=== PATIENT | male | born 1960 | race American Indian/Alaskan Native ===

== ENCOUNTER 2019-02-28 06:51 | Observation (INO) | payer OTHER ==
[2019-02-28] MEDS ORDERED: NACL 0.9% 1000 ML 1,000 ML IV ONE ×2 (07:16→12:27)
[2019-02-28] MEDS ORDERED: ASPIRIN PO ONE (07:29)
--- NOTE | 2019-02-28 07:34 | Emergency Department Report ---
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 Patient presented to the ER stating that he is not feeling well and he has been having a blurry vision on the left eye since yesterday. Patient denied any chest pain, shortness of breath, palpitation, weakness, numbness or tingling sensation. Patient denied any headache, neck pain, abdominal pain or extremity pain. Patient found to have a blood pressure of 87/47 in the emergency room. Patient stated that he took his blood pressure medicine this morning. Severity scale (0 -10): 0 - Related Data Home Medications Medication Instructions Recorded Confirmed Last Taken Payton Allergy 1 tab PO DAILY 02/28/19 02/28/19 02/28/19 Clopidogrel Bisulfate [Plavix] 75 mg PO DAILY 02/28/19 02/28/19 02/28/19 Imdur ER mg PO DAILY 02/28/19 Unknown Lamictal 200 mg PO DAILY 02/28/19 02/28/19 02/28/19 Zantac 150 MG TAB 1 tab PO DAILY 02/28/19 02/28/19 02/28/19 Allergies Allergy/AdvReac Type Severity Reaction Status Date / Time ciprofloxacin [From Cipro] Allergy Hives Verified 02/28/19 06:58 Sulfa (Sulfonamide Allergy Swelling Verified 02/28/19 06:59 Antibiotics) ED Review of Systems ROS: Stated complaint: POSS HIGH BP LT EYE BLURRED VISION Other details as noted in HPI Comment: All other systems reviewed and negative Constitutional: denies: chills, fever Eyes: vision change Respiratory: denies: cough Cardiovascular: denies: chest pain, palpitations, dyspnea on exertion, orthopnea, edema, syncope, paroxysmal nocturnal dyspnea Gastrointestinal: denies: abdominal pain, nausea, vomiting, diarrhea, constipation, hematemesis, melena Musculoskeletal: denies: back pain Neurological: denies: headache, weakness, numbness, paresthesias, confusion, abnormal gait ED Past Medical Hx - Past Medical History Previous Medical History?: Yes Hx Hypertension: Yes Hx Heart Attack/AMI: Yes (CT x 2, LAD 50% blockage) 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 - Surgical History Past Surgical History?: Yes Additional Surgical History: Bilateral Inguinal Hernia - Social History Smoking Status: Never Smoker Substance Use Type: None - Medications Home Medications: Home Medications Medication Instructions Recorded Confirmed Last Taken Type Payton Allergy 1 tab PO DAILY 02/28/19 02/28/19 02/28/19 History Clopidogrel Bisulfate [Plavix] 75 mg PO DAILY 02/28/19 02/28/19 02/28/19 History Imdur ER mg PO DAILY 02/28/19 Unknown History Lamictal 200 mg PO DAILY 02/28/19 02/28/19 02/28/19 History Zantac 150 MG TAB 1 tab PO DAILY 02/28/19 02/28/19 02/28/19 History ED Physical Exam - General Limitations: No Limitations General appearance: alert, in no apparent distress - Head Head exam: Present: atraumatic, normocephalic, normal inspection - Eye Eye exam: Present: normal appearance, PERRL - ENT ENT exam: Present: normal exam, normal orophraynx, mucous membranes moist - Neck Neck exam: Present: normal inspection, full ROM. Absent: tenderness, meningismus, lymphadenopathy, thyromegaly - Respiratory Respiratory exam: Present: normal lung sounds bilaterally - Cardiovascular Cardiovascular Exam: Present: regular rate, normal rhythm, normal heart sounds - GI/Abdominal GI/Abdominal exam: Present: soft, normal bowel sounds. Absent: distended, tenderness, guarding, rebound, rigid - Extremities Exam Extremities exam: Present: normal inspection, full ROM, normal capillary refill - Back Exam Back exam: Present: normal inspection, full ROM. Absent: tenderness, CVA tenderness (R), CVA tenderness (L), muscle spasm, paraspinal tenderness, vertebral tenderness - Neurological Exam Neurological exam: Present: alert, oriented X3, CN II-XII intact, normal gait, reflexes normal, other (NIHSS is 0) - Skin Skin exam: Present: warm, intact, normal color ED Course Vital Signs 02/28/19 02/28/19 02/28/19 07:03 07:39 08:06 Temperature 97.7 F Pulse Rate 72 61 Respiratory 18 17 16 Rate Blood Pressure 87/47 Blood Pressure 104/62 [Left] O2 Sat by Pulse 98 94 Oximetry 02/28/19 08:26 Temperature Pulse Rate 60 Respiratory 15 Rate Blood Pressure Blood Pressure 119/77 [Left] O2 Sat by Pulse 96 Oximetry ED Medical Decision Making - Lab Data Result diagrams: 02/28/19 07:35 02/28/19 07:35 - EKG Data -: EKG Interpreted by Me EKG shows normal: sinus rhythm Rate: bradycardia - EKG Data Interpretation: no acute changes - Radiology Data Radiology results: report reviewed Referring Physician: VALENTÍN TINOCO Patient Name: TREASURE BURGOS Date of : 1960 Sex: Male Report Date: 2019-02-28 Report Status: Finalized Findings [facility] [address] [place] [address] Cat Scan Report Signed Patient: TREASURE BURGOS MR#: [id number] : 1960 Acct:[id number] Age/Sex: 58 / M ADM Date: 02/28/19 Loc: ED Attending Dr: Ordering Physician: VALENTÍN TINOCO Date of Service: 02/28/19 Procedure(s): CT angio chest Accession Number(s): [id number] cc: VALENTÍN TINOCO PROCEDURE: CT ANGIO CHEST TECHNIQUE: TECHNIQUE: Computerized tomographic angiography of the chest was performed after the IV injection of iodinated nonionic contrast including image processing. The image data was postprocessed using 2-dimensional multiplanar reformatted (MPR) and 3- dimensional (MIP and/or volume rendered) techniques. Automated exposure control, adjustment of mA and/or kV according to patient size, or iterative reconstruction dose optimization techniques were utilized. Coronal and sagittal reconstructed imaging provided. CT DOSE LENGTH PRODUCT: 1024.6 mGy-cm. HISTORY: syncope, elevated d-dimer COMPARISONS: None currently available. FINDINGS: No pneumothorax. No effusion. No consolidation. No endobronchial lesion. Bibasilar dependent subsegmental atelectasis. Main pulmonary artery is unremarkable. No pulmonary embolism. No aneurysm. No dissection. Major branch arteries are within normal limits. Mild atherosclerotic disease. Mild cardiomegaly. No pericardial effusion. Coronary artery disease. There is no axillary adenopathy. There is no hilar or mediastinal mass or adenopathy. Limited images of the thyroid gland are unremarkable. Limited images of the esophagus are unremarkable. Bones: No suspicious osseous lesions on this limited examination of the skeleton. Metastatic disease better evaluated with bone scan. Degenerative changes are present in the spine. IMPRESSION: * No acute findings. This document is electronically signed by Germán Larsen MD., February 28 2019 09:21:35 AM ET Transcribed By: TYM Dictated By: GERMÁN LARSEN MD Electronically Authenticated By: GERMÁN LARSEN MD Signed Date/Time: 02/28/19 0923 Referring Physician: VALENTÍN TINOCO Patient Name: TREASURE BURGOS Date of : 1960 Sex: Male Report Date: 2019-02-28 Report Status: [place] [address] Cat Scan Report Signed Patient: TREASURE BURGOS MR#: [id number] : 1960 Acct:[id number] Age/Sex: 58 / M ADM Date: 02/28/19 Loc: ED Attending Dr: Ordering Physician: VALENTÍN TINOCO Date of Service: 02/28/19 Procedure(s): CT head/brain wo con Accession Number(s): [id number] cc: VALENTÍN TINOCO EXAM: CT HEAD/BRAIN WO CON HISTORY: blurred vision TECHNIQUE: Spiral axial CT images are obtained through the brain without the administration of intravenous contrast. COMPARISON: None available. FINDINGS: There are parenchymal lucencies within the white matter tracks of the centrum semiovale, consistent with chronic sequela of atherosclerotic microvascular ischemic disease. Atherosclerosis of the distal vertebral arteries is seen. There is diffuse cerebral cortical atrophy. The centrum semiovale, basal ganglia, cerebellum, and brainstem are otherwise grossly unremarkable for a noncontrast CT scan. There is no acute intracranial hemorrhage, gross acute infarction, mass lesion, midline shift, or hydrocephalus seen. No extra-axial mass or abnormal fluid collection noted. The calvarium is intact. There is chronic right maxillary sinusitis marked by mucoperiosteal thickening. The partially imaged paranasal sinuses, middle ear cavities and mastoid air cells are otherwise clear. IMPRESSION: 1. Extensive chronic microvascular ischemic disease noted, but no discernible acute infarction seen. Note that small or subtle acute infarctions can be obscured in this radiologic setting. Clinical correlation is advised. Consider followup MRI with diffusion-weighted imaging to rule out occult acute infarction as clinically warranted. 2. Atherosclerosis of the distal vertebral arteries is seen. 3. No skull fracture, intracranial hemorrhage, mass lesion, midline shift, or hydrocephalus seen. 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 Patient presented to the ER stating that he is not feeling well and he has been having a blurry vision on the left eye since yesterday. Patient denied any chest pain, shortness of breath, palpitation, weakness, numbness or tingling sensation. Patient denied any headache, neck pa in, abdominal pain or extremity pain. Patient found to have a blood pressure of 87/47 in the emergency room. Patient stated that he took his blood pressure medicine this morning. Patient stated that he is feeling better. CT brain is negative for acute findings that patient might need further workup with an MRI. CTA of the chest is negative for PE or other pathology. I discussed the patient is Dr. Pina, he agreed to admit the patient to medical service for further management. Critical Care Time: Yes Critical care time in (mins) excluding proc time.: 30 Critical care attestation.: If time is entered above; I have spent that time in minutes in the direct care of this critically ill patient, excluding procedure time. ED Disposition Clinical Impression: Dizziness, Hypotension Disposition: OP ADMIT IP TO THIS HOSP Is pt being admited?: Yes Condition: Stable Referrals: PRIMARY CARE, [Primary Care Provider] - 3-5 Days
[2019-02-28 08:01] LABS: Basophils # (Auto) 0.1 K/mm3 (0.0-0.1); Basophils % (Auto) 0.8 % (0.0-1.8); Eosinophils # (Auto) 0.2 K/mm3 (0.0-0.4); Eosinophils % (Auto) 2.5 % (0.0-4.3); Hematocrit 42.3 % (35.5-45.6); Hemoglobin 14.4 gm/dl (11.8-15.2); Lymphocytes # (Auto) 1.3 K/mm3 (1.2-5.4); Lymphocytes % (Auto) 16.8 % (13.4-35.0); Mean Corpuscular HGB Conc 34 % (32-34); Mean Corpuscular Volume 86 fl (84-94); Monocytes # (Auto) 0.5 K/mm3 (0.0-0.8); Monocytes % (Auto) 6.7 % (0.0-7.3); Platelet Count 240 K/mm3 (140-440); Red Blood Count 4.93 M/mm3 (3.65-5.03); Red Cell Distribution Width 14.3 % (13.2-15.2)
[2019-02-28 08:06] LABS: Calcium 8.9 mg/dL (8.4-10.2)
[2019-02-28 08:11] LABS: INR 0.98 (0.87-1.13)
[2019-02-28 08:12] LABS: Partial Thromboplastin Time 28.3 Sec. (24.2-36.6)
--- NOTE | 2019-02-28 08:24 | Cat Scan Report ---
EXAM: CT HEAD/BRAIN WO CON HISTORY: blurred vision TECHNIQUE: Spiral axial CT images are obtained through the brain without the administration of intra venous contrast. COMPARISON: None available. FINDINGS: There are parenchymal lucencies within the white matter tracks of the centrum semiovale, consistent w ith chronic sequela of atherosclerotic microvascular ischemic disease. Atherosclerosis of the distal vertebral arteries is seen. There is diffuse cerebral cortical atrophy. The centrum semiovale, basal ganglia, cerebellum, and bra instem are otherwise grossly unremarkable for a noncontrast CT scan. There is no acute intracranial hemorrhage, gross acute infarction, mass lesion, midline shift, or hydrocephalus seen. No extra-axia l mass or abnormal fluid collection noted. The calvarium is intact. There is chronic right maxillary sinusitis marked by mucoperiosteal thickeni ng. The partially imaged paranasal sinuses, middle ear cavities and mastoid air cells are otherwise c lear. IMPRESSION: 1. Extensive chronic microvascular ischemic disease noted, but no discernible acute infarction seen. Note that small or subtle acute infarctions can be obscured in this radiologic setting. Clinical cor relation is advised. Consider followup MRI with diffusion-weighted imaging to rule out occult acute i nfarction as clinically warranted. 2. Atherosclerosis of the distal vertebral arteries is seen. 3. No skull fracture, intracranial hemorrhage, mass lesion, midline shift, or hydrocephalus seen. This document is electronically signed by Vinay Mathis MD., February 28 2019 08:21:47 AM ET
--- NOTE | 2019-02-28 08:47 | XRay Report ---
EXAM: XR CHEST ROUTINE 2V HISTORY: Chest Pain TECHNIQUE: PA and lateral chest x-ray dated 02/28/2019 at 7:49 AM. COMPARISON: None available. FINDINGS: The heart size and mediastinum are within normal limits. The lung bingham and costophrenic angles are clear. There is mild asymmetrical elevation or mamillation of the right hemidiaphragm (presumed annette omical variant). There is no acute parenchymal infiltrate, pleural effusion, or pneumothorax seen. T he visualized bony structures are within normal limits. IMPRESSION: 1. No evidence for acute cardiopulmonary disease seen. This document is electronically signed by Vinay Mathis MD., February 28 2019 08:45:23 AM ET
--- NOTE | 2019-02-28 09:23 | Cat Scan Report ---
PROCEDURE: CT ANGIO CHEST TECHNIQUE: TECHNIQUE: Computerized tomographic angiography of the chest was performed after the IV i njection of iodinated nonionic contrast including image processing. The image data was postprocessed using 2-dimensional multiplanar reformatted (MPR) and 3-dimensional (MIP and/or volume rendered) emmy hniques. Automated exposure control, adjustment of mA and/or kV according to patient size, or iterati ve reconstruction dose optimization techniques were utilized. Coronal and sagittal reconstructed imag ing provided. CT DOSE LENGTH PRODUCT: 1024.6 mGy-cm. HISTORY: syncope, elevated d-dimer COMPARISONS: None currently available. FINDINGS: No pneumothorax. No effusion. No consolidation. No endobronchial lesion. Bibasilar dependent subsegme ntal atelectasis. Main pulmonary artery is unremarkable. No pulmonary embolism. No aneurysm. No dissection. Major branch arteries are within normal limits. Mild atherosclerotic dise ase. Mild cardiomegaly. No pericardial effusion. Coronary artery disease. There is no axillary adenopathy. There is no hilar or mediastinal mass or adenopathy. Limited images of the thyroid gland are unremarkable. Limited images of the esophagus are unremarkable. Bones: No suspicious osseous lesions on this limited examination of the skeleton. Metastatic disease better evaluated with bone scan. Degenerative changes are present in the spine. IMPRESSION: * No acute findings. This document is electronically signed by Germán Rosales MD., February 28 2019 09:21:35 AM ET
[2019-02-28] MEDS ORDERED: NACL 0.9% 1000 ML 1,000 ML ONE (12:09)
[2019-02-28] MEDS ORDERED: DILAUDID IV PRN (15:08)
[2019-02-28] MEDS ORDERED: TYLENOL PO PRN (15:08)
[2019-02-28] MEDS ORDERED: SODIUM CHLORIDE FLUSH SYRINGE 10 ML IV PRN (15:08)
[2019-02-28] MEDS ORDERED: ZOFRAN IV PRN (15:08)
[2019-02-28] MEDS ORDERED: PERCOCET 5/325 PO PRN (15:08)
--- NOTE | 2019-02-28 19:54 | History and Physical Report ---
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 Patient denied any chest pain, shortness of breath, palpitation, weakness, numbness or tingling sensation. Patient denied any headache, neck pain, abdominal pain or extremity pain. Patient found to have a blood pressure of 87/47 in the emergency room. 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 Surgical History Past Surgical History?: Yes Additional Surgical History: Bilateral Inguinal Hernia Social History Smoking Status: Never Smoker Substance Use Type: None Family History HTN Medications Home Medications: Home Medications Medication Instructions Recorded Confirmed Last Taken Type Payton Allergy 1 tab PO DAILY 02/28/19 02/28/19 02/28/19 History Clopidogrel Bisulfate [Plavix] 75 mg PO DAILY 02/28/19 02/28/19 02/28/19 History Imdur ER mg PO DAILY 02/28/19 Unknown History Lamictal 200 mg PO DAILY 02/28/19 02/28/19 02/28/19 History Zantac 150 MG TAB 1 tab PO DAILY 02/28/19 02/28/19 02/28/19 History Review of Systems ROS: Stated complaint: POSS HIGH BP LT EYE BLURRED VISION Other details as noted in HPI Comment: All other systems reviewed and negative Constitutional: denies: chills, fever Eyes: vision change Respiratory: denies: cough Cardiovascular: denies: chest pain, palpitations, dyspnea on exertion, orthopnea, edema, syncope, paroxysmal nocturnal dyspnea Gastrointestinal: denies: abdominal pain, nausea, vomiting, diarrhea, constipation, hematemesis, melena Musculoskeletal: denies: back pain Neurological: denies: headache, weakness, numbness, paresthesias, confusion, abnormal gait Medications and Allergies Allergies Allergy/AdvReac Type Severity Reaction Status Date / Time ciprofloxacin [From Cipro] Allergy Hives Verified 02/28/19 06:58 Sulfa (Sulfonamide Allergy Swelling Verified 02/28/19 06:59 Antibiotics) Home Medications Medication Instructions Recorded Confirmed Last Taken Type Payton Allergy 1 tab PO DAILY 02/28/19 02/28/19 02/28/19 History Clopidogrel Bisulfate [Plavix] 75 mg PO DAILY 02/28/19 02/28/19 02/28/19 History Imdur ER mg PO DAILY 02/28/19 Unknown History Lamictal 200 mg PO DAILY 02/28/19 02/28/19 02/28/19 History Zantac 150 MG TAB 1 tab PO DAILY 02/28/19 02/28/19 02/28/19 History Active Meds: Active Medications Acetaminophen (Tylenol) 650 mg PO Q4H PRN PRN Reason: Pain MILD(1-3)/Fever >100.5/OVERTON Aspirin (Baby Aspirin) 81 mg PO QDAY LATISHA Famotidine (Pepcid) 20 mg IV BID LATISHA Hydromorphone HCl (Dilaudid) 0.5 mg IV Q3H PRN PRN Reason: Pain , Severe (7-10) Ondansetron HCl (Zofran) 4 mg IV Q8H PRN PRN Reason: Nausea And Vomiting Oxycodone/Acetaminophen (Percocet 5/325) 1 tab PO Q6H PRN PRN Reason: Pain, Moderate (4-6) Sodium Chloride (Sodium Chloride Flush Syringe 10 Ml) 10 ml IV BID LATISHA Sodium Chloride (Sodium Chloride Flush Syringe 10 Ml) 10 ml IV PRN PRN PRN Reason: LINE FLUSH Exam - Constitutional Vitals: Temp Pulse Resp BP Pulse Ox 97.6 F 59 L 18 141/88 95 02/28/19 17:46 02/28/19 17:46 02/28/19 17:46 02/28/19 17:46 02/28/19 17:46 General appearance: Present: no acute distress, well-nourished - EENT Eyes: Present: PERRL ENT: hearing intact, clear oral mucosa - Neck Neck: Present: supple, normal ROM - Respiratory Respiratory effort: normal Respiratory: bilateral: CTA - Cardiovascular Heart rate: 63 Rhythm: regular Heart Sounds: Present: S1 & S2. Absent: rub, click - Extremities Extremities: no ischemia, pulses intact, pulses symmetrical, No edema Peripheral Pulses: within normal limits - Abdominal General gastrointestinal: Present: soft, non-tender, non-distended, normal bowel sounds Male genitourinary: Present: normal - Rectal Rectal Exam: deferred - Integumentary Integumentary: Present: clear, warm, dry - Musculoskeletal Musculoskeletal: gait normal, strength equal bilaterally - Psychiatric Psychiatric: appropriate mood/affect, intact judgment & insight - Neurologic Neurologic: CNII-XII intact, moves all extremities - Allied Health Allied health notes reviewed: nursing, case management Results - Labs CBC & Chem 7: 03/01/19 05:24 03/01/19 05:24 Labs: Laboratory Last Values WBC 7.6 K/mm3 (4.5-11.0) 02/28/19 07:35 RBC 4.93 M/mm3 (3.65-5.03) 02/28/19 07:35 Hgb 14.4 gm/dl (11.8-15.2) 02/28/19 07:35 Hct 42.3 % (35.5-45.6) 02/28/19 07:35 MCV 86 fl (84-94) 02/28/19 07:35 MCH 29 pg (28-32) 02/28/19 07:35 MCHC 34 % (32-34) 02/28/19 07:35 RDW 14.3 % (13.2-15.2) 02/28/19 07:35 Plt Count 240 K/mm3 (140-440) 02/28/19 07:35 Lymph % (Auto) 16.8 % (13.4-35.0) 02/28/19 07:35 Morton % (Auto) 6.7 % (0.0-7.3) 02/28/19 07:35 Eos % (Auto) 2.5 % (0.0-4.3) 02/28/19 07:35 Baso % (Auto) 0.8 % (0.0-1.8) 02/28/19 07:35 Lymph # 1.3 K/mm3 (1.2-5.4) 02/28/19 07:35 Morton # 0.5 K/mm3 (0.0-0.8) 02/28/19 07:35 Eos # 0.2 K/mm3 (0.0-0.4) 02/28/19 07:35 Baso # 0.1 K/mm3 (0.0-0.1) 02/28/19 07:35 Seg Neutrophils % 73.2 % (40.0-70.0) H 02/28/19 07:35 Seg Neutrophils # 5.5 K/mm3 (1.8-7.7) 02/28/19 07:35 PT 13.6 Sec. (12.2-14.9) 02/28/19 07:35 INR 0.98 (0.87-1.13) 02/28/19 07:35 APTT 28.3 Sec. (24.2-36.6) 02/28/19 07:35 D-Dimer 388.83 ng/mlDDU (0-234) H 02/28/19 07:35 Sodium 140 mmol/L (137-145) 02/28/19 07:35 Potassium 4.3 mmol/L (3.6-5.0) 02/28/19 07:35 Chloride 108.4 mmol/L (98-107) H 02/28/19 07:35 Carbon Dioxide 22 mmol/L (22-30) 02/28/19 07:35 Anion Gap 14 mmol/L 02/28/19 07:35 BUN 23 mg/dL (9-20) H 02/28/19 07:35 Creatinine 1.4 mg/dL (0.8-1.5) 02/28/19 07:35 Estimated GFR 52 ml/min 02/28/19 07:35 BUN/Creatinine Ratio 16 % 02/28/19 07:35 Glucose 115 mg/dL (75-100) H 02/28/19 07:35 Hemoglobin A1c 5.5 % (4-6) 02/28/19 13:00 Lactic Acid 1.20 mmol/L (0.7-2.0) 02/28/19 07:35 Calcium 8.9 mg/dL (8.4-10.2) 02/28/19 07:35 Total Bilirubin 0.60 mg/dL (0.1-1.2) 02/28/19 07:35 AST 15 units/L (5-40) 02/28/19 07:35 ALT 13 units/L (7-56) 02/28/19 07:35 Alkaline Phosphatase 67 units/L (35-129) 02/28/19 07:35 Troponin T < 0.010 ng/mL (0.00-0.029) 02/28/19 13:30 Total Protein 6.4 g/dL (6.3-8.2) 02/28/19 07:35 Albumin 4.0 g/dL (3.9-5) 02/28/19 07:35 Albumin/Globulin Ratio 1.7 % 02/28/19 07:35 Short CBC 02/28/19 03/01/19 Range/Units 07:35 05:24 WBC 7.6 6.6 (4.5-11.0) K/mm3 Hgb 14.4 14.4 (11.8-15.2) gm/dl Hct 42.3 42.2 (35.5-45.6) % Plt Count 240 201 (140-440) K/mm3 BMP 02/28/19 03/01/19 07:35 05:24 Sodium 140 142 Potassium 4.3 4.0 Chloride 108.4 H 109.1 H Carbon Dioxide 22 22 BUN 23 H 12 Creatinine 1.4 1.1 Glucose 115 H 98 Calcium 8.9 8.7 Cardiac Enzymes 02/28/19 02/28/19 02/28/19 Range/Units 07:35 10:18 13:30 Troponin T < 0.010 < 0.010 < 0.010 (0.00-0.029) ng/mL Liver Function 02/28/19 03/01/19 Range/Units 07:35 05:24 Total Bilirubin 0.60 0.50 (0.1-1.2) mg/dL AST 15 18 (5-40) units/L ALT 13 15 (7-56) units/L Alkaline Phosphatase 67 64 (35-129) units/L Albumin 4.0 3.7 L (3.9-5) g/dL - Imaging and Cardiology EKG: report reviewed (NSR 63/min) Chest x-ray: report reviewed (NAF) Imaging and Cardiology: Head CT IMPRESSION: 1. Extensive chronic microvascular ischemic disease noted, but no discernible acute infarction seen. Note that small or subtle acute infarctions can be obscured in this radiologic setting. Clinical correlation is advised. Consider followup MRI with diffusion-weighted imaging to rule out occult acute infarction as clinically warranted. 2. Atherosclerosis of the distal vertebral arteries is seen. 3. No skull fracture, intracranial hemorrhage, mass lesion, midline shift, or hydrocephalus seen. CTA chest IMPRESSION: * No acute findings. This document is electronically signed by Germán Rosales MD., February 28 2019 09:21:35 AM ET Assessment and Plan Advance Directives: Yes (Full code) VTE prophylaxis?: Chemical Plan of care discussed with patient/family: Yes - Patient Problems (1) Hypotension Current Visit: Yes Status: Acute Qualifiers: Hypotension type: hypotension due to drug Qualified Code(s): I95.2 - Hypotension due to drugs Plan to address problem: Iatrogenic Patient takes all BP meds at the same time Was advised to space them out and suggested a time schedule (2) CAD (coronary artery disease) Current Visit: Yes Status: Chronic Plan to address problem: Cont Isosorbide and ASA (3) HTN (hypertension) Current Visit: Yes Status: Chronic Qualifiers: Hypertension type: essential hypertension Qualified Code(s): I10 - Essential (primary) hypertension Plan to address problem: Resume antihypertensives when stable Will cut the dose of Valsartan (4) DVT prophylaxis Current Visit: Yes Status: Acute Plan to address problem: On Lovenox
[2019-02-28] MEDS: PEPCID IV SCH (21:48)
[2019-02-28] MEDS: SODIUM CHLORIDE FLUSH SYRINGE 10 ML IV SCH (21:51)
[2019-03-01 06:06] LABS: Basophils % (Auto) 0.8 % (0.0-1.8); Eosinophils # (Auto) 0.2 K/mm3 (0.0-0.4); Eosinophils % (Auto) 3.4 % (0.0-4.3); Hematocrit 42.2 % (35.5-45.6); Hemoglobin 14.4 gm/dl (11.8-15.2); Lymphocytes # (Auto) 1.6 K/mm3 (1.2-5.4); Lymphocytes % (Auto) 23.7 % (13.4-35.0); Mean Corpuscular HGB Conc 34 % (32-34); Mean Corpuscular Volume 86 fl (84-94); Monocytes # (Auto) 0.4 K/mm3 (0.0-0.8); Monocytes % (Auto) 6.6 % (0.0-7.3); Platelet Count 201 K/mm3 (140-440); Red Blood Count 4.91 M/mm3 (3.65-5.03); Red Cell Distribution Width 14.1 % (13.2-15.2)
[2019-03-01 06:33] LABS: Alanine Aminotransferase 15 units/L (7-56); Albumin 3.7 g/dL (3.9-5); BUN/Creatinine Ratio 11; Blood Urea Nitrogen 12 mg/dL (9-20); Calcium 8.7 mg/dL (8.4-10.2); Hemolysis Index 7
[2019-03-01] MEDS: BABY ASPIRIN PO SCH (10:09)
[2019-03-01] MEDS: PEPCID IV SCH ×2 (10:09→21:50)
[2019-03-01] MEDS: SODIUM CHLORIDE FLUSH SYRINGE 10 ML IV SCH ×2 (10:09→21:50)
--- NOTE | 2019-03-01 11:24 | Discharge Summary ---
Providers - Providers Date of Admission: 02/28/19 11:44 Date of discharge: 03/01/19 Attending physician: NAOMI CALIX none Primary care physician: STRU[employer] SUPERVISOR Hospitalization Condition: Good Pertinent studies: CT scan head which showed extensive microvascular ischemic changes consistent with vascular disease. Hospital course: 58-year-old history of hypertension coronary disease presents with an acute episode of hypotension after taking all of blood pressure medications and ischemic medications at the same time. Medications were santiago symptoms of headache and blurred vision resolved immediately. Follow-up CT scan head unremarkable. Except for old microvascular ischemia. Aspirin course unremarkable abdominal and medications except for return of hypertension. Patient be discharged home in medications valsartan will be cut in half to 160 once daily and titrate accordingly. Continue Coreg 12.5 twice a day. Disposition: TO HOME OR SELFCARE - Discharge Diagnoses (1) Dizziness Status: Acute (2) Hypotension Status: Acute Qualifiers: Hypotension type: hypotension due to drug Qualified Code(s): I95.2 - Hypotension due to drugs Comment: diovan 160 daily and f?u with automobile technician for titration (3) CAD (coronary artery disease) Status: Chronic Comment: cont IMdur (4) HTN (hypertension) Status: Chronic Qualifiers: Hypertension type: essential hypertension Qualified Code(s): I10 - Essential (primary) hypertension Comment: take coreg 12.5 bid and diovan 160 in am as well.. long acting NTG can be taken i the evening with the Coreg Core Measure Documentation - Palliative Care Palliative Care/ Comfort Measures: Not Applicable - Core Measures Any of the following diagnoses?: none Exam - Constitutional Vitals: Temp Pulse Resp BP Pulse Ox 98.4 F 59 L 20 187/107 95 03/01/19 08:17 03/01/19 08:17 03/01/19 08:17 03/01/19 08:17 03/01/19 08:17 General appearance: Present: no acute distress, well-nourished - EENT Eyes: Present: PERRL ENT: hearing intact, clear oral mucosa - Neck Neck: Present: supple, normal ROM - Respiratory Respiratory effort: normal Respiratory: bilateral: CTA - Cardiovascular Heart Sounds: Present: S1 & S2. Absent: rub, click - Extremities Extremities: pulses symmetrical, No edema Peripheral Pulses: within normal limits - Abdominal General gastrointestinal: Present: soft, non-tender, non-distended, normal bowel sounds Male genitourinary: Present: normal - Integumentary Integumentary: Present: clear, warm, dry - Musculoskeletal Musculoskeletal: gait normal, strength equal bilaterally - Psychiatric Psychiatric: appropriate mood/affect, intact judgment & insight - Neurologic Neurologic: CNII-XII intact, moves all extremities Plan Activity: no restrictions Weight Bearing Status: Weight Bear as Tolerated Diet: low salt Special Instructions: record daily BP diary Follow up with: PRIMARY CARE, [Primary Care Provider] - 3-5 Days Prescriptions: Carvedilol [Coreg] 12.5 mg PO BID #60 tablet Valsartan [Diovan] 160 mg PO DAILY #30 tablet
[2019-03-01] MEDS ORDERED: APRESOLINE IV ONE (12:00)
[2019-03-01] MEDS: COREG PO SCH ×2 (14:18→21:50)
[2019-03-01] MEDS: DIOVAN PO SCH (14:24)
--- NOTE | 2019-03-01 17:46 | Event Note ---
Date: 03/01/19 Discharge he'll because patient began to have left-sided chest pain diaphoresis after receiving hydralazine. Cardiology consult obtained. Hydralazine discontinued.
[2019-03-01] MEDS: CLARITIN PO SCH (17:56)
[2019-03-01] MEDS: SINGULAIR PO SCH (17:56)
[2019-03-01] MEDS ORDERED: DIOVAN PO SCH (22:00)
[2019-03-02] MEDS ORDERED: APRESOLINE IV PRN ×3 (00:19→00:26)
[2019-03-02] MEDS ORDERED: CATAPRES PO PRN (00:47)
[2019-03-02] MEDS: BABY ASPIRIN PO SCH (09:30)
[2019-03-02] MEDS: CLARITIN PO SCH (09:30)
[2019-03-02] MEDS: DIOVAN PO SCH (09:31)
[2019-03-02] MEDS: COREG PO SCH (09:31)
[2019-03-02] MEDS: SINGULAIR PO SCH (09:32)
[2019-03-02] MEDS: PEPCID IV SCH (09:32)
[2019-03-02] MEDS: SODIUM CHLORIDE FLUSH SYRINGE 10 ML IV SCH (09:32)
[2019-03-02] MEDS ORDERED: DIOVAN PO SCH (10:00)
[2019-03-02] MEDS ORDERED: ZANTAC 150 MG PO SCH (10:00)
[2019-03-02] MEDS ORDERED: LAMICTAL 200 MG PO SCH (10:00)
[2019-03-02] MEDS ORDERED: SINGULAIR PO SCH (10:00)
[2019-03-02] MEDS ORDERED: LaMICtal PO SCH (10:00)
[2019-03-02] MEDS ORDERED: PLAVIX PO SCH (10:00)
[2019-03-02] MEDS ORDERED: DIOVAN PO ONE (13:00)
--- NOTE | 2019-03-02 15:58 | Discharge Summary ---
Providers - Providers Date of Admission: 02/28/19 11:44 Date of discharge: 03/02/19 Attending physician: ANN VERAS 03/01/19 17:44 Consult to Physician [CONS] Routine Comment: Consulting Provider: LATANYA MENDOZA Physician Instructions: Reason For Exam: chest pain Primary care physician: PUMPER GAUGER APPRENTICE Hospitalization Reason for admission: Hypotension, medication induced Condition: Good Procedures: None Hospital course: Final discharge diagnosis: -Hypotension, medication induced (resolved) -Sinus bradycardia -CAD -History of hypertension Hospital course: In the ED patient received IV fluid bolus. He was admitted and continued on maintenance IV fluid while his antihypertensives were held. At some point, his blood pressure accelerated which necessitated giving him IV hydralazine which he reacted to. He was discontinued and patient was monitored without any further adverse events. Thereafter, patient was deemed stable for discharge with clinic follow-up. 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 Disposition: [id number]-01 TO HOME OR SELFCARE Time spent for discharge: 30 minutes Core Measure Documentation - Palliative Care Palliative Care/ Comfort Measures: Not Applicable - Core Measures Any of the following diagnoses?: none Exam - Constitutional Vitals: Temp Pulse Resp BP Pulse Ox 97.9 F 56 L 16 155/87 94 03/02/19 11:27 03/02/19 11:27 03/02/19 14:00 03/02/19 11:27 03/02/19 11:27 General appearance: Present: no acute distress, well-nourished - EENT Eyes: Present: PERRL, EOM intact ENT: hearing intact, clear oral mucosa - Neck Neck: Present: supple, normal ROM - Respiratory Respiratory effort: normal Respiratory: bilateral: CTA - Cardiovascular Rhythm: regular Heart Sounds: Present: S1 & S2. Absent: rub, click - Extremities Extremities: pulses symmetrical, No edema Peripheral Pulses: within normal limits - Abdominal General gastrointestinal: Present: soft, non-tender, non-distended, normal bowel sounds Male genitourinary: Present: deferred - Integumentary Integumentary: Present: clear, warm, dry - Musculoskeletal Musculoskeletal: gait normal, strength equal bilaterally - Psychiatric Psychiatric: appropriate mood/affect, intact judgment & insight - Neurologic Neurologic: CNII-XII intact, moves all extremities Plan Follow up with: PRIMARY CARE,MD [Primary Care Provider] - 3-5 Days Prescriptions: Carvedilol [Coreg] 12.5 mg PO BID #60 tablet Carvedilol [Coreg] 6.25 mg PO BID #30 tablet Valsartan [Diovan] 160 mg PO DAILY #30 tablet
[2019-03-02 17:55] VITALS: BP 155/87
[2019-03-02] MEDS ORDERED: PEPCID PO SCH (22:00)
== END 2019-03-02 14:40 | disposition home or self-care (01) ==
LOC: ED 06:51 → INTOOBSV 11:44 → 4A 11:44
PROVIDERS: ADMIT Internal Medicine; ATTEND Internal Medicine
DX: I95.9 Hypotension, unspecified (principal); I25.10 Atherosclerotic heart disease of native coronary artery without angina pectoris; I10 Essential (primary) hypertension; R42 Dizziness and giddiness; Z98.890 Other specified postprocedural states; Z79.82 Long term (current) use of aspirin; Z79.899 Other long term (current) drug therapy
CPT/HCPCS: 36415; 70450; 71046; 71275; 80053; 82140; 83036; 84484; 85025; 85379; 85610; 85730; 93005; 93010; 96361; 96374; 96375; 96376; 99291; G0378; J0360; J7030; Q9967